=== PATIENT | male | born 1970 | race Caucasian/White ===

== ENCOUNTER 2019-10-25 09:16 | Emergency (ER) | payer OTHER ==
[~2019-10-25] VITALS: Ht 177.8 cm; Wt 101.2 kg
[~2019-10-25 09:16] MED LIST: ANAPROX DS550 MG PO; ASPIRIN81 M1 PO; AUGMENTIN 875 M1 TAB PO; CIPRODEX 0.3%-7.5 ML OT; CLINDAMYCIN HC300 MG PO; HYDROCODONE BIT1 T11 PO; IBU-8800 MG PO; MOTRIN800 MG PO; VICODIN 5/500 505 MG PO; VICODIN ES 7501 TAB PO; ZOFRAN ODT4 MG PO; ZOFRAN ODT4 MG SL
[2019-10-25 10:52] LABS: BASO # 0.1 10*3/uL (0.0-0.1); BASO % 0.8 % (0.0-1.0); EOS # 0.1 10*3/uL (0.0-0.4); EOS % 0.7 % (1.0-4.0); HEMATOCRIT 43.6 % (42.0-52.0); HEMOGLOBIN 14.4 g/dl (14.0-18.0); LYMPH # 1.5 10*3/uL (1.3-4.4); LYMPH % 14.3 % (27.0-41.0); MEAN CELL VOLUME 87.7 fl (80.0-94.0); MEAN PLATELET VOLUME 9.4 fl (9.6-12.3); MONO # 0.6 10*3/uL (0.1-1.0); MONO % 5.8 % (3.0-9.0); NEUT % 77.8 % (47.0-73.0); PLATELET COUNT AUTOMATED 302 10*3/uL (130-400); RED BLOOD COUNT 4.97 10*6/uL (4.50-5.90); WHITE BLOOD COUNT 10.2 10*3/uL (4.8-10.8)
[2019-10-25 11:08] LABS: ALKALINE PHOSPHATASE 68 U/L (45-117); BUN 10 mg/dl (7-24); CHLORIDE 108 mmol/L (98-107); CREATININE 1.02 mg/dL (0.70-1.30); POTASSIUM 4.3 mmol/L (3.5-5.1); SGOT/AST 11 IU/L (3-35); SGPT/ALT 29 U/L (12-78); SODIUM 139 mmol/L (136-145); TOTAL PROTEIN 7.9 gm/dL (6.4-8.2)
[2019-10-25] MEDS ORDERED: NORCO 5-325 TA1 EACH PO (13:08)
[2019-10-25] MEDS ORDERED: IBUPROFEN600 MG PO (13:08)
[2019-10-25] MEDS ORDERED: CIPRODEX 0.3%-7.5 ML OT (13:08)
== END 2019-10-25 13:29 | disposition home or self-care (01) ==
LOC: ED 09:16
PROVIDERS: Physician Assistant
DX: H60.92 Unspecified otitis externa, left ear (principal); Z88.1 Allergy status to other antibiotic agents; Z88.8 Allergy status to other drugs, medicaments and biological substances

== ENCOUNTER → 2022-06-02 | Day surgery (SDC) | payer OTHER ==
[~2022-06-02] VITALS: Ht 177.8 cm; Wt 106.6 kg
[~2022-06-02] MED LIST changes: +CARAFATE1 G1 PO; +IBUPROFEN600 MG PO; +NORCO 5-325 TA1 EACH PO; +ONE DAILY WITH1 EACH PO; +PROTONIX40 MG PO
[2022-06-02 08:00] VITALS: BP 132/71
[2022-06-02 08:46] VITALS: BP 104/71
[2022-06-02 09:01] VITALS: BP 101/64
[2022-06-02 09:14] VITALS: BP 110/86
== END | disposition home or self-care (01) ==
LOC: SDC 05-30 09:30
PROVIDERS: ATTEND Surgery
DX: Z12.11 Encounter for screening for malignant neoplasm of colon (principal); K21.00 Gastro-esophageal reflux disease with esophagitis, without bleeding; K29.50 Unspecified chronic gastritis without bleeding; Z88.1 Allergy status to other antibiotic agents; Z88.8 Allergy status to other drugs, medicaments and biological substances

== ENCOUNTER 2024-01-26 16:33 | Emergency (ER) | payer OTHER ==
[~2024-01-26] VITALS: Ht 177.8 cm; Wt 65.3 kg
[2024-01-26 16:55] LABS: BASO # 0.1 10*3/uL (0.0-0.1); BASO % 0.9 % (0.0-1.0); EOS # 0.2 10*3/uL (0.0-0.4); EOS % 2.1 % (1.0-4.0); HEMATOCRIT 42.1 % (42.0-52.0); LYMPH # 1.7 10*3/uL (1.3-4.4); LYMPH % 20.5 % (27.0-41.0); MEAN CELL VOLUME 85.9 fl (80.0-94.0); MEAN CORPUSCULAR HGB 29.4 pg (27.0-31.0); MEAN CORPUSCULAR HGB CONC 34.2 g/dl (33.0-37.0); MEAN PLATELET VOLUME 9.2 fl (9.6-12.3); MONO # 0.6 10*3/uL (0.1-1.0); NEUT # 5.6 10*3/uL (2.3-7.9); NEUT % 68.9 % (47.0-73.0); PLATELET COUNT AUTOMATED 245 10*3/uL (130-400); RED CELL DISTRI WIDTH 12.5 % (0-14.5); WHITE BLOOD COUNT 8.2 10*3/uL (4.8-10.8)
[2024-01-26 17:09] LABS: BUN 9 mg/dl (9-23); CHLORIDE 106 mmol/L (98-107); POTASSIUM 3.8 mmol/L (3.4-5.1)
[2024-01-26] MEDS ORDERED: predniSONE 20 MG TAB PO ONE (17:55)
[2024-01-26] MEDS ORDERED: BENZONATATE 100 MG CAP PO ONE (17:55)
[2024-01-26] MEDS ORDERED: BENZONATATE100 M1 PO (17:56)
[2024-01-26] MEDS ORDERED: PREDNISONE50 MG PO (17:56)
== END 2024-01-26 18:00 | disposition home or self-care (01) ==
LOC: ED 16:33
PROVIDERS: Nurse Practitioner Family
DX: J45.909 Unspecified asthma, uncomplicated (principal); Z88.8 Allergy status to other drugs, medicaments and biological substances; Z98.890 Other specified postprocedural states; Z87.442 Personal history of urinary calculi

== ENCOUNTER 2025-07-11 09:27 | Emergency (ER) | payer OTHER ==
[~2025-07-11] VITALS: Wt 113.4 kg
[~2025-07-11 09:27] MED LIST changes: +BENZONATATE100 M1 PO; +PREDNISONE50 MG PO
[2025-07-11] MEDS ORDERED: METHOCARBAMOL750 M1 PO (11:26)
[2025-07-11] MEDS ORDERED: PERCOCET 5-3251 EACH PO (11:26)
[2025-07-11] MEDS ORDERED: NAPROSYN500 MG PO (11:26)
[2025-07-11] MEDS ORDERED: PREDNISONE20 M1 PO (11:26)
== END 2025-07-11 11:32 | disposition home or self-care (01) ==
LOC: ED 09:27
DX: S39.012A Strain of muscle, fascia and tendon of lower back, initial encounter (principal); D18.09 Hemangioma of other sites; M51.9 Unspecified thoracic, thoracolumbar and lumbosacral intervertebral disc disorder; Z88.1 Allergy status to other antibiotic agents; Z88.8 Allergy status to other drugs, medicaments and biological substances; Z79.899 Other long term (current) drug therapy; Z79.82 Long term (current) use of aspirin; X50.1XXA Overexertion from prolonged static or awkward postures, initial encounter; Y93.89 Activity, other specified; Y92.89 Other specified places as the place of occurrence of the external cause; Y99.8 Other external cause status